=== PATIENT | female | born 1975 | race Caucasian/White ===

== ENCOUNTER 2016-06-03 18:49 | Emergency (ER) | payer MEDICAID ==
[~2016-06-03] VITALS: Ht 160 cm; Wt 65.5 kg
[~2016-06-03 18:49] MED LIST: BENZ100C PO; GUAI237S4; HYDR-3138 PO; IBUP200C; LAMO200T3 PO; LAMO5TB.2 PO; LEVO250T23 PO; METH4TAB6 PO; ONDA4TAB10 PO; PRAZ1CAP2 PO; RANI150T8; TRAZ100T15 PO
[2016-06-03] MEDS ORDERED: METR250T PO (21:41)
[2016-06-03] MEDS ORDERED: HYDROmorphone 1 MG/ML, 1ML ONE (21:44)
[2016-06-03] MEDS ORDERED: KETOROLAC 30 MG/1 ML ONE (21:44)
[2016-06-03] MEDS ORDERED: ONDANSETRON ODT 4 MG ONE (21:45)
[2016-06-03] MEDS ORDERED: KETOROLAC 30 MG/1 ML IM ONE (22:00)
[2016-06-03] MEDS ORDERED: ONDANSETRON ODT 4 MG PO ONE (22:00)
[2016-06-03] MEDS ORDERED: HYDROmorphone 1 MG/ML, 1ML IM ONE (22:00)
[2016-06-03 23:24] LABS: ICTOTEST NEGATIVE
[2016-06-03] MEDS ORDERED: OXYcodone/APAP 10/325MG TABLET PO ONE (23:30)
[2016-06-03] MEDS ORDERED: OXYcodone/APAP 10/325MG TABLET ONE (23:31)
[2016-06-04] MEDS ORDERED: LIDOCAINE 1%, 20ML ONE (00:54)
[2016-06-04] MEDS ORDERED: CEFTRIAXONE 1,000 MG ONE (00:54)
[2016-06-04] MEDS ORDERED: CEFTRIAXONE 1,000 MG IM ONE (01:00)
[2016-06-04 01:27] VITALS: BP 101/53
== END 2016-06-04 01:37 | disposition home or self-care (01) ==
LOC: ED 23:13
DX: N30.00 Acute cystitis without hematuria (principal); R10.2 Pelvic and perineal pain; F31.9 Bipolar disorder, unspecified; Z90.49 Acquired absence of other specified parts of digestive tract; Z90.710 Acquired absence of both cervix and uterus; Z88.0 Allergy status to penicillin; Z88.1 Allergy status to other antibiotic agents; Z88.6 Allergy status to analgesic agent; Z88.8 Allergy status to other drugs, medicaments and biological substances; Z88.2 Allergy status to sulfonamides; F17.210 Nicotine dependence, cigarettes, uncomplicated
CPT/HCPCS: 76830; 81001; 87086; 96372; 99285; J0696; J1170; J1885; Q0162

== ENCOUNTER 2016-09-01 18:02 | Emergency (ER) | payer MEDICAID ==
[~2016-09-01] VITALS: Ht 160 cm; Wt 65.5 kg
[~2016-09-01 18:02] MED LIST changes: +METR250T PO
[2016-09-01] MEDS ORDERED: MECLIZINE CHEWABLE 25 MG TAB PO ONE (18:30)
[2016-09-01] MEDS ORDERED: SODIUM CHLORIDE FLUSH 10ML SYR IVF ONE (18:30)
[2016-09-01] MEDS ORDERED: ONDANSETRON 2MG/ML, 2ML IVPush ONE (18:30)
[2016-09-01] MEDS ORDERED: SODIUM CHLORIDE 0.9% 1,000ML IVBOLUS ONE (18:30)
[2016-09-01 19:09] LABS: BLOOD UREA NITROGEN 13 mg/dL (7-18)
[2016-09-01 19:20] LABS: IS PT STATUS REG ER OR PRE ER? YES
[2016-09-01] MEDS ORDERED: ONDANSETRON 2MG/ML, 2ML ONE (19:27)
[2016-09-01] MEDS ORDERED: MECLIZINE CHEWABLE 25 MG TAB ONE (19:27)
[2016-09-01 19:43] VITALS: BP 107/55
[2016-09-01] MEDS ORDERED: OXYcodone/APAP 5/325MG TABLET PO ONE (20:30)
[2016-09-01] MEDS ORDERED: OXYcodone/APAP 5/325MG TABLET ONE (20:52)
== END 2016-09-01 21:07 | disposition home or self-care (01) ==
LOC: ED 20:30
DX: R42 Dizziness and giddiness (principal); R11.0 Nausea; G43.919 Migraine, unspecified, intractable, without status migrainosus; D72.829 Elevated white blood cell count, unspecified; Z85.41 Personal history of malignant neoplasm of cervix uteri; Z90.710 Acquired absence of both cervix and uterus
CPT/HCPCS: 36415; 70450; 71010; 80048; 81001; 82040; 84484; 85025; 87086; 93005; 96361; 96374; 99285; J2405; J7030

== ENCOUNTER 2016-11-11 09:08 | Emergency (ER) | payer MEDICAID ==
[~2016-11-11] VITALS: Ht 160 cm; Wt 62.8 kg
[~2016-11-11 09:08] MED LIST changes: -HYDR-3138 PO; +HYDR-3237 PO; -IBUP200C; +IBUP200C5
[2016-11-11 09:18] VITALS: BP 118/78
[2016-11-11] MEDS ORDERED: SODIUM CHLORIDE 0.9% 1,000 ML IV ONE (09:27)
[2016-11-11] MEDS ORDERED: SODIUM CHLORIDE 0.9% 1,000ML IVBOLUS ONE (09:30)
[2016-11-11] MEDS ORDERED: ONDANSETRON 2MG/ML, 2ML IVPush ONE (09:30)
[2016-11-11] MEDS ORDERED: FAMOTIDINE 20 MG/2 ML IVP ONE (09:30)
[2016-11-11 09:58] LABS: HEMATOCRIT 45.6 % (34.6-47.8); HEMOGLOBIN 15.3 g/dL (11.7-16.4); WHITE BLOOD COUNT 16.4 x10^3/uL (3.4-10)
[2016-11-11 10:07] LABS: ASPARTATE AMINO TRANSFERASE 12 U/L (15-37); BLOOD UREA NITROGEN 12 mg/dL (7-18)
[2016-11-11] MEDS ORDERED: MAALOX/HYOSCYAMINE/LIDOCAINE 45 ML BTL PO ONE (10:30)
[2016-11-11] MEDS ORDERED: MORPHINE SULFATE 4 MG/ML, 1ML IVPush ONE (10:30)
== END 2016-11-11 10:51 ==
LOC: ED 10:20
DX: R10.2 Pelvic and perineal pain (principal); R11.2 Nausea with vomiting, unspecified; Z90.710 Acquired absence of both cervix and uterus; Z90.49 Acquired absence of other specified parts of digestive tract
CPT/HCPCS: 36415; 74020; 80053; 83690; 85025; 99285

== ENCOUNTER 2016-12-23 19:20 | Emergency (ER) | payer MEDICAID ==
[~2016-12-23] VITALS: Ht 157.5 cm; Wt 64.1 kg
[2016-12-23] MEDS ORDERED: SODIUM CHLORIDE FLUSH 10ML SYR IVF ONE (19:30)
[2016-12-23] MEDS ORDERED: SODIUM CHLORIDE 0.9% 1,000ML IVBOLUS ONE (19:30)
[2016-12-23 19:47] LABS: HEMATOCRIT 43.2 % (34.6-47.8); HEMOGLOBIN 14.6 g/dL (11.7-16.4); WHITE BLOOD COUNT 12.7 x10^3/uL (3.4-10)
[2016-12-23 19:59] LABS: BLOOD UREA NITROGEN 7 mg/dL (7-18)
[2016-12-23] MEDS ORDERED: PLEASE ENTER HEIGHT AND WEIGHT MC SCH (20:00)
[2016-12-23 20:22] LABS: DAU SCREEN DISCLAIMER
[2016-12-23] MEDS ORDERED: PROMETHAZINE 25 MG/ML, 1ML ONE (21:50)
[2016-12-23] MEDS ORDERED: PROMETHAZINE 25 MG/ML, 1ML IVPush ONE (22:00)
[2016-12-23] MEDS ORDERED: PROMETHAZINE 25 MG/ML, 1ML IM ONE ×2 (22:00)
[2016-12-23] MEDS ORDERED: GADOBUTROL 7.5 MMOL/7.5 ML PFS ONE (23:57)
[2016-12-24 00:33] VITALS: BP 101/51
== END 2016-12-24 00:35 | disposition home or self-care (01) ==
LOC: ED 20:56
DX: S09.90XA Unspecified injury of head, initial encounter (principal); H53.2 Diplopia; X58.XXXA Exposure to other specified factors, initial encounter; Y93.9 Activity, unspecified; Y99.8 Other external cause status; Y92.89 Other specified places as the place of occurrence of the external cause
CPT/HCPCS: 36415; 70450; 70553; 71010; 80048; 80307; 82040; 84703; 85025; 93005; 96360; 96372; 99285; A9585; J2550; J7030; G0479

== ENCOUNTER 2019-04-19 08:51 | Emergency (ER) | payer MEDICAID ==
[~2019-04-19] VITALS: Ht 162.6 cm; Wt 74.8 kg
[~2019-04-19 08:51] MED LIST changes: +IBUP-1623; -IBUP200C5; +RANI-467; -RANI150T8; +TRAZ-137 PO; -TRAZ100T15 PO
[2019-04-19 08:58] VITALS: BP 116/61
[2019-04-19] MEDS ORDERED: DIAZEPAM 5 MG TABLET PO ONE (09:30)
[2019-04-19] MEDS ORDERED: DIAZEPAM 5 MG TABLET ONE (09:31)
[2019-04-19] MEDS ORDERED: KETOROLAC 30 MG/1 ML ONE (09:31)
[2019-04-19] MEDS ORDERED: KETOROLAC 30 MG/1 ML IM ONE (10:00)
== END 2019-04-19 10:59 | disposition home or self-care (01) ==
LOC: ED 10:30
DX: S73.122A Ischiocapsular ligament sprain of left hip, initial encounter (principal); W50.2XXA Accidental twist by another person, initial encounter; Y93.89 Activity, other specified; Y92.098 Other place in other non-institutional residence as the place of occurrence of the external cause; Y99.8 Other external cause status
CPT/HCPCS: 72190; 96372; 99283; J1885

== ENCOUNTER 2019-06-01 16:07 | Emergency (ER) | payer MEDICAID ==
[~2019-06-01] VITALS: Ht 157.5 cm; Wt 74.1 kg
[~2019-06-01 16:07] MED LIST changes: -TRAZ-137 PO; +TRAZ-175 PO
[2019-06-01 16:08] VITALS: BP 124/73
[2019-06-01 16:58] LABS: RAPID INFLUENZA A Negative (Negative); RAPID INFLUENZA B Negative (Negative)
--- NOTE | 2019-06-01 17:33 | NUR ---
Patient/Caregiver given discharge instructions and they have confirmed that they understand the instructions. Patient ambulatory with steady gait. PT LEFT WITH ALL PERSONAL BELONGINGS.
== END 2019-06-01 17:35 | disposition home or self-care (01) ==
LOC: ED 17:15
DX: B34.9 Viral infection, unspecified (principal); F17.210 Nicotine dependence, cigarettes, uncomplicated; Z90.710 Acquired absence of both cervix and uterus
CPT/HCPCS: 71046; 87081; 87400; 87880; 99284

== ENCOUNTER 2020-07-01 08:51 | Emergency (ER) | payer MEDICAID ==
[~2020-07-01] VITALS: Ht 160 cm; Wt 70.3 kg
[2020-07-01 08:52] VITALS: BP 123/66
[2020-07-01] MEDS ORDERED: OXYcodone/APAP 5/325MG TABLET ONE (09:17)
--- NOTE | 2020-07-01 09:23 | NUR ---
PT TO XR W TECH
[2020-07-01] MEDS ORDERED: OXYcodone/APAP 5/325MG TABLET PO ONE (09:30)
--- NOTE | 2020-07-01 09:31 | NUR ---
return from w tech. tolerated the imaging well
== END 2020-07-01 10:18 | disposition home or self-care (01) ==
LOC: ED 09:03
DX: M25.552 Pain in left hip (principal)
CPT/HCPCS: 99283